=== PATIENT | female | born 1990 | race Two or more races ===

== ENCOUNTER 2020-05-19 10:01 | Emergency (ER) | payer OTHER ==
[~2020-05-19] VITALS: Ht 154.9 cm; Wt 48.5 kg
[~2020-05-19 10:01] MED LIST: BUCALSEP SPRAY30 ML MM
[2020-05-19] MEDS ORDERED: ZITHROMAX500 MG PO (12:42)
== END 2020-05-19 12:59 | disposition home or self-care (01) ==
LOC: ER 10:01
DX: G44.89 Other headache syndrome (principal); B96.0 Mycoplasma pneumoniae [M. pneumoniae] as the cause of diseases classified elsewhere; R53.81 Other malaise; F41.8 Other specified anxiety disorders; Z03.818 Encounter for observation for suspected exposure to other biological agents ruled out

== ENCOUNTER 2020-10-25 18:14 | Emergency (ER) | payer OTHER ==
[~2020-10-25] VITALS: Ht 152.4 cm; Wt 49.9 kg
[~2020-10-25 18:14] MED LIST changes: +ZITHROMAX500 MG PO
== END 2020-10-25 22:38 | disposition home or self-care (01) ==
LOC: ER 18:14
DX: R53.81 Other malaise (principal); R51.9 Headache, unspecified; T88.1XXA Other complications following immunization, not elsewhere classified, initial encounter

== ENCOUNTER 2021-11-14 13:41 | Emergency (ER) | payer OTHER ==
[~2021-11-14] VITALS: Ht 154.9 cm; Wt 49.9 kg
[2021-11-14] MEDS ORDERED: ZITHROMAX500 MG PO (18:39)
[2021-11-14] MEDS ORDERED: MEDROLPACK PO (18:39)
== END 2021-11-14 18:45 | disposition home or self-care (01) ==
LOC: ER 13:41
DX: A49.3 Mycoplasma infection, unspecified site (principal); B34.9 Viral infection, unspecified

== ENCOUNTER 2022-08-15 10:33 | Emergency (ER) | payer OTHER ==
[~2022-08-15] VITALS: Ht 154.9 cm; Wt 49.4 kg
[~2022-08-15 10:33] MED LIST changes: +MEDROLPACK PO
== END 2022-08-15 19:11 | disposition left against medical advice (07) ==
LOC: ER 10:33
DX: J40 Bronchitis, not specified as acute or chronic (principal); Z20.822 Contact with and (suspected) exposure to COVID-19

== ENCOUNTER 2024-03-21 17:24 | Emergency (ER) | payer OTHER ==
[~2024-03-21] VITALS: Ht 154.9 cm; Wt 52.2 kg
[2024-03-21] MEDS ORDERED: 0.9 % SODIUM CHLORIDE 500 ML IV STA (19:20)
[2024-03-21] MEDS ORDERED: ACETAMINOPHEN 325 MG TABLET PO STA (19:21)
[2024-03-21] MEDS ORDERED: ACETAMINOPHEN 500 MG GEL..CAP PO ONE (19:33)
[2024-03-21 20:04] LABS: ALBUMIN 4.3 gm/dL (3.4-5.0); BILIRUBIN TOTAL 0.26 mg/dL (0.3-1.2); CALCIUM 9.3 mg/dL (8.5-10.1); CREATININE SERUM 0.88 mg/dL (0.55-1.02); GFR 73.55; GLOBULINA 3.2 G/DL (2.4-3.5); POTASSIUM 3.81 mEq/L (3.5-5.1); TOTAL PROTEIN 7.5 gm/dL (6.4-8.2)
[2024-03-21 20:15] LABS: HEMATOCRIT 40.2 % (36.0-45.00); HEMOGLOBIN 13.6 g/dL (12.0-15.00); MEAN CELL VOLUME 84.3 fL (80.00-100.00); MEAN CORPUSCULAR HEMOGLOBIN 28.5 pg (27.00-32.0); MEAN CORPUSCULAR HGB CONC 33.8 g/dl (32.0-36.0); PLATELET COUNT 131 K/uL (150-450); RED BLOOD COUNT 4.77 M/uL (4.00-6.00); RED CELL DISTRIBUTION WIDTH 13.5 % (11.5-14.5)
[2024-03-21 20:36] LABS: PH,URINE 6.5 (5.0-8.0); URINE APPEARANCE Clear; URINE BILIRRUBIN Negative (NEGATIVE); URINE BLOOD Negative; URINE COLOR Yellow; URINE GLUCOSE Negative (NEGATIVE); URINE KETONE Negative (NEGATIVE); URINE LEUKOCYTE Negative; URINE NITRATE Negative; URINE PROTEIN Negative (NEGATIVE); URINE UROBILINOGEN 0.2 E.U./dl
[2024-03-21 20:39] LABS: URINE BACTERIA 472.2 uL (0.0-1933); URINE WBC 7.5 uL (0.0-23.2)
[2024-03-21 20:53] LABS: INR 1.1; PARTIAL THROMBOPLASTIN TIME 34.4 SECONDS (22.0-34.0); PROTHROMBIN TIME 11.5 SECONDS (9.0-11.5)
== END 2024-03-21 21:39 | disposition home or self-care (01) ==
LOC: ER 17:25
PROVIDERS: General Practice
DX: R53.81 Other malaise (principal); A90 Dengue fever [classical dengue]; Z20.822 Contact with and (suspected) exposure to COVID-19

== ENCOUNTER 2024-03-23 15:41 | Inpatient (IN) | payer OTHER ==
[~2024-03-23] VITALS: Ht 154.9 cm; Wt 51.3 kg
[2024-03-23] MEDS ORDERED: ACETAMINOPHEN 500 MG GEL..CAP PO ONE ×3 (15:59→23:27)
[2024-03-23] MEDS ORDERED: 0.9 % SODIUM CHLORIDE 1,000 ML IV ONE (16:30)
[2024-03-23] MEDS ORDERED: ONDANSETRON HCL 2 MG/ML VIAL IV ONE (16:30)
[2024-03-23] MEDS ORDERED: ONDANSETRON HCL 2 MG/ML VIAL ONE (16:39)
[2024-03-23 16:50] LABS: HEMATOCRIT 42.1 % (36.0-45.00); HEMOGLOBIN 14.5 g/dL (12.0-15.00); MEAN CELL VOLUME 81.9 fL (80.00-100.00); MEAN CORPUSCULAR HEMOGLOBIN 28.2 pg (27.00-32.0); MEAN CORPUSCULAR HGB CONC 34.4 g/dl (32.0-36.0); RED BLOOD COUNT 5.14 M/uL (4.00-6.00); RED CELL DISTRIBUTION WIDTH 13.5 % (11.5-14.5)
[2024-03-23 16:57] LABS: PLATELET COUNT 88 K/uL (150-450)
[2024-03-23 17:00] LABS: PLT IN CITRATE 80 K/uL (150-450)
[2024-03-23 17:29] LABS: ALBUMIN 4.4 gm/dL (3.4-5.0); BILIRUBIN TOTAL 0.32 mg/dL (0.3-1.2); CREATININE SERUM 0.85 mg/dL (0.55-1.02); GFR 76.56; GLOBULINA 3.1 G/DL (2.4-3.5); POTASSIUM 4.39 mEq/L (3.5-5.1); TOTAL PROTEIN 7.5 gm/dL (6.4-8.2)
[2024-03-23 18:01] LABS: INR 1.09; PARTIAL THROMBOPLASTIN TIME 35.4 SECONDS (22.0-34.0); PROTHROMBIN TIME 11.4 SECONDS (9.0-11.5)
[2024-03-23] MEDS ORDERED: ONDANSETRON HCL 2 MG/ML VIAL IV PRN (22:00)
[2024-03-23] MEDS ORDERED: 0.9 % SODIUM CHLORIDE 1,000 ML IV SCH (22:15)
[2024-03-24 00:01] LABS: URINE APPEARANCE Clear; URINE BILIRRUBIN Negative (NEGATIVE); URINE BLOOD Negative; URINE COLOR Yellow; URINE GLUCOSE Negative (NEGATIVE); URINE KETONE Negative (NEGATIVE); URINE LEUKOCYTE Negative; URINE NITRATE Negative; URINE PROTEIN Negative (NEGATIVE); URINE UROBILINOGEN 0.2 E.U./dl
[2024-03-24 00:04] LABS: URINE BACTERIA 1384.5 uL (0.0-1933); URINE WBC 14.5 uL (0.0-23.2)
[2024-03-24] MEDS ORDERED: ACETAMINOPHEN 325 MG TABLET PO SCH (05:00)
[2024-03-24 07:28] LABS: ALBUMIN 3.7 gm/dL (3.4-5.0); BILIRUBIN TOTAL 0.19 mg/dL (0.3-1.2); CALCIUM 8.5 mg/dL (8.5-10.1); CREATININE SERUM 0.85 mg/dL (0.55-1.02); GFR 76.56; GLOBULINA 2.8 G/DL (2.4-3.5); POTASSIUM 4.09 mEq/L (3.5-5.1); TOTAL PROTEIN 6.5 gm/dL (6.4-8.2)
[2024-03-24 07:35] LABS: HEMOGLOBIN 13.8 g/dL (12.0-15.00); MEAN CELL VOLUME 81.9 fL (80.00-100.00); MEAN CORPUSCULAR HEMOGLOBIN 28.2 pg (27.00-32.0); MEAN CORPUSCULAR HGB CONC 34.4 g/dl (32.0-36.0); RED BLOOD COUNT 4.89 M/uL (4.00-6.00); RED CELL DISTRIBUTION WIDTH 13.7 % (11.5-14.5)
[2024-03-24 07:52] LABS: PLATELET COUNT 77 K/uL (150-450)
[2024-03-24] MEDS ORDERED: DEXAMETHASONE SODIUM PHOSPHATE 4 MG/ML VIAL IV SCH (09:00)
[2024-03-24] MEDS ORDERED: FAMOTIDINE/PF 20 MG/2 ML VIAL IV SCH (09:00)
[2024-03-25] MEDS ORDERED: ACETAMINOPHEN 500 MG GEL..CAP PO SCH
[2024-03-25 06:17] LABS: PLT IN CITRATE 55 K/uL (150-450)
[2024-03-25] MEDS ORDERED: ACETAMINOPHEN 500 MG GEL..CAP PO ONE (06:21)
[2024-03-25 06:26] LABS: HEMATOCRIT 40.3 % (36.0-45.00); HEMOGLOBIN 13.6 g/dL (12.0-15.00); MEAN CELL VOLUME 82.3 fL (80.00-100.00); MEAN CORPUSCULAR HEMOGLOBIN 27.8 pg (27.00-32.0); MEAN CORPUSCULAR HGB CONC 33.8 g/dl (32.0-36.0); RED CELL DISTRIBUTION WIDTH 13.8 % (11.5-14.5)
[2024-03-25 06:42] LABS: PLATELET COUNT 55 K/uL (150-450)
[2024-03-26 05:19] LABS: PLT IN CITRATE 34 K/uL (150-450)
[2024-03-26 05:26] LABS: HEMATOCRIT 40.3 % (36.0-45.00); HEMOGLOBIN 13.6 g/dL (12.0-15.00); MEAN CELL VOLUME 83.4 fL (80.00-100.00); MEAN CORPUSCULAR HGB CONC 33.6 g/dl (32.0-36.0); RED BLOOD COUNT 4.84 M/uL (4.00-6.00); RED CELL DISTRIBUTION WIDTH 13.7 % (11.5-14.5)
[2024-03-26 05:34] LABS: PLATELET COUNT 40 K/uL (150-450)
[2024-03-26] MEDS ORDERED: ALPRAzolam 0.5 MG TABLET PO SCH (09:00)
[2024-03-26] MEDS ORDERED: METHYLPREDNISOLONE SOD SUCC 40 MG VIAL IV SCH (09:00)
[2024-03-27 08:02] LABS: HEMATOCRIT 43.5 % (36.0-45.00); HEMOGLOBIN 15.1 g/dL (12.0-15.00); MEAN CELL VOLUME 81.6 fL (80.00-100.00); MEAN CORPUSCULAR HEMOGLOBIN 28.3 pg (27.00-32.0); MEAN CORPUSCULAR HGB CONC 34.7 g/dl (32.0-36.0); RED BLOOD COUNT 5.33 M/uL (4.00-6.00)
[2024-03-27 09:53] LABS: PLATELET COUNT 49 K/uL (150-450)
[2024-03-28 10:23] LABS: HEMOGLOBIN 13.9 g/dL (12.0-15.00); MEAN CELL VOLUME 82.5 fL (80.00-100.00); MEAN CORPUSCULAR HEMOGLOBIN 27.9 pg (27.00-32.0); MEAN CORPUSCULAR HGB CONC 33.8 g/dl (32.0-36.0); PLATELET COUNT 94 K/uL (150-450); RED BLOOD COUNT 4.97 M/uL (4.00-6.00); RED CELL DISTRIBUTION WIDTH 13.9 % (11.5-14.5)
[2024-03-28] MEDS ORDERED: ALPRAZOLAM0.5 MG PO (11:02)
[2024-03-28] MEDS ORDERED: PAIN RELIEVER500 M2 PO (11:02)
== END 2024-03-28 12:00 | disposition home or self-care (01) | DRG 866 ==
LOC: ER 15:42 → MEDJ 21:56 → MEDI 21:56 → MEDJ 23:06
PROVIDERS: Internal Medicine; Nurse Practitioner Family; Student in an Organized Health Care Education/Training Program; ADMIT Internal Medicine; ATTEND Internal Medicine
DX: A90 Dengue fever [classical dengue] (principal); D69.6 Thrombocytopenia, unspecified